=== PATIENT | male | born 1965 | race Caucasian/White ===

== ENCOUNTER 2023-01-05 17:09 | Emergency (ER) | payer SELFPAY | END 2023-01-05 17:39 | disposition home or self-care (01) | LOC: CSHERS 17:09 | DX: K08.89 Other specified disorders of teeth and supporting structures (principal); E11.9 Type 2 diabetes mellitus without complications; E78.00 Pure hypercholesterolemia, unspecified; I10 Essential (primary) hypertension; Z87.891 Personal history of nicotine dependence | CPT/HCPCS: 99282 ==

== ENCOUNTER 2023-05-01 08:51 | Emergency (ER) | payer SELFPAY | END 2023-05-01 10:48 | disposition home or self-care (01) | LOC: CSHERS 08:51 | DX: S53.402A Unspecified sprain of left elbow, initial encounter (principal); E11.9 Type 2 diabetes mellitus without complications; E78.00 Pure hypercholesterolemia, unspecified; I10 Essential (primary) hypertension; Z87.891 Personal history of nicotine dependence; W18.30XA Fall on same level, unspecified, initial encounter ==

== ENCOUNTER 2023-05-04 22:44 | Emergency (ER) | payer SELFPAY | END 2023-05-05 01:00 | disposition home or self-care (01) | LOC: CSHERS 22:44 | DX: S52.125A Nondisplaced fracture of head of left radius, initial encounter for closed fracture (principal); E11.9 Type 2 diabetes mellitus without complications; I10 Essential (primary) hypertension; Z87.891 Personal history of nicotine dependence; E78.00 Pure hypercholesterolemia, unspecified; W19.XXXA Unspecified fall, initial encounter ==

== ENCOUNTER 2023-05-27 13:59 | Emergency (ER) | payer SELFPAY ==
[2023-05-27] MEDS ORDERED: Ketorolac Tromethamine 30 MG/ML VIAL ONE (15:24)
== END 2023-05-27 15:36 | disposition home or self-care (01) ==
LOC: CSHERS 13:59
DX: K04.7 Periapical abscess without sinus (principal); K02.9 Dental caries, unspecified; E11.9 Type 2 diabetes mellitus without complications; I10 Essential (primary) hypertension; G47.33 Obstructive sleep apnea (adult) (pediatric); Z99.89 Dependence on other enabling machines and devices; Z87.891 Personal history of nicotine dependence
CPT/HCPCS: 96372; 99282; J1885